=== PATIENT | female | born 1945 | race Caucasian/White ===

== ENCOUNTER 2019-09-05 03:56 | Emergency (ER) | payer MEDICARE ==
[2019-09-05] MEDS ORDERED: Albuterol Sulfate 2.5 mg/3 ml Neb ONE ×2 (04:01→12:11)
[2019-09-05] MEDS ORDERED: Lorazepam 2 MG/ML VIAL ONE (04:05)
[2019-09-05] MEDS ORDERED: methylPREDNISolone Sod Succ/PF 125 MG/2 ML VIAL ONE (04:05)
[2019-09-05 04:23] LABS: #Basophils 0.1 thou/uL (0.0-0.2); #Eosinphils 0.5 thou/uL (0.0-0.7); #Lymphocytes 2.5 thou/uL (1.20-3.40); #Monocytes 0.7 thou/uL (0.11-0.59); #Neutrophils 5.3 thou/uL (1.40-6.50); %Basophils 0.8 % (0.0-1.0); %Eosinophils 5.2 % (0.0-10.0); %Lymphocytes 27.5 % (21.0-51.0); %Monocytes 7.5 % (0.0-10.0); %Neutrophils 59.1 % (42.0-75.0); Mean Corpuscular Volume 90.6 fL (78.0-98.0); Mean Platelet Volume 7.7 fL (7.4-10.4); Platelet Count 350 thou/uL (130-400); RBC Distribution Width 12.5 % (11.5-14.5); Red Blood Cell (RBC) Count 3.43 mill/uL (4.20-5.40)
[2019-09-05 04:46] LABS: ALT (SGPT) 26 U/L (8-55); AST (SGOT) 19 U/L (5-34); Albumin 3.6 g/dL (3.4-4.8); Alkaline Phosphatase 70 U/L (40-110); Anion Gap 13 mmol/L (10-20); BUN (Urea Nitrogen) 13 mg/dL (9.8-20.1); Bilirubin, Total 0.4 mg/dL (0.2-1.2); Calc. Creatinine Clearance 0 mL/min (70-130); Carbon Dioxide 26 mmol/L (23-31); Chloride 107 mmol/L (98-107); Estimated GFR-MDRD 36; Globulin 3.1 g/dL (2.4-3.5); Glucose 141 mg/dL (83-110); Protein, Total 6.7 g/dL (6.0-8.3); Sodium 142 mmol/L (136-145)
--- NOTE | 2019-09-05 07:15 | RAD ---
CHEST 1 VIEW: Date: 09/05/2019 HISTORY: Dyspnea. Respiratory distress. COMPARISON: 11/17/10, 11/26/10. FINDINGS: Portable upright chest demonstrates a normal cardiac silhouette. Lungs and pleural spaces are clear. No pneumothorax or osseous abnormalities. IMPRESSION: No acute cardiopulmonary process. POS: PPP
== END 2019-09-05 16:13 | disposition short-term general hospital (02) ==
LOC: ERS 03:56
DX: J44.1 Chronic obstructive pulmonary disease with (acute) exacerbation (principal); I10 Essential (primary) hypertension; E78.00 Pure hypercholesterolemia, unspecified; Z79.82 Long term (current) use of aspirin; Z79.899 Other long term (current) drug therapy
CPT/HCPCS: 71045; 80053; 85025; 93005; 94640; 94644; 96374; 96375; J2060; J2930; J7611

== ENCOUNTER 2022-03-23 21:07 | Inpatient (IN) | payer MEDICARE ==
[2022-03-23 22:38] VITALS: BMI 38.9
[2022-03-23] MEDS ORDERED: HYDROmorphone 0.5 MG/0.5 ML SYRINGE SLOW IVP SCH (23:15)
[2022-03-23] MEDS ORDERED: Sodium Chloride 0.9% 1,000 ML IV SCH (23:15)
[2022-03-23] MEDS ORDERED: Ondansetron ODT 4 MG TAB PO PRN (23:46)
[2022-03-24] MEDS: Ketorolac Tromethamine 30 MG/ML VIAL IVP SCH (01:05)
[2022-03-24] MEDS: Ondansetron PF 4 MG/2 ML Vial IVP PRN (01:05)
[2022-03-24] MEDS: Lidocaine 5% Patch TD SCH (02:41)
[2022-03-24] MEDS ORDERED: Pantoprazole 40 MG VIAL IVP SCH ×2 (03:15→09:00)
[2022-03-24] MEDS: HYDROmorphone 0.5 MG/0.5 ML SYRINGE SLOW IVP PRN ×2 (03:46→22:51)
[2022-03-24 06:57] LABS: Anion Gap 15 mmol/L (10-20); BUN (Urea Nitrogen) 28 mg/dL (9.8-20.1); Calc. Creatinine Clearance 62 mL/min (70-130); Calcium 8.2 mg/dL (7.8-10.44); Carbon Dioxide 20 mmol/L (23-31); Chloride 111 mmol/L (98-107); Estimated GFR 53; Glucose 112 mg/dL (83-110); Potassium 4.8 mmol/L (3.5-5.1); Sodium 141 mmol/L (136-145)
[2022-03-24 07:05] LABS: Band 1 % (5-11); Eosinophils 2 % (0-10); Hemoglobin 11.3 g/dL (12.0-16.0); Lymphocytes 47 % (21-51); MDiff Complete? YES; Mean Corpuscular HGB CONC 31.2 g/dL (32.0-36.0); Monocytes 6 % (0-10); Neutrophil 43 % (42-75); Platelet Count 205 thou/uL (130-400); RBC Distribution Width 12.7 % (11.5-14.5); Red Blood Cell (RBC) Count 3.75 mill/uL (4.20-5.40); White Blood Cell (WBC) Count 8.5 thou/uL (4.8-10.8)
[2022-03-24] MEDS: Enoxaparin Sodium 30 MG/0.3 ML SYRINGE SC SCH (09:31)
[2022-03-24] MEDS ORDERED: HYDROcodone/Acetaminophen 5/325 mg Tablet PO SCH (11:30)
[2022-03-24] MEDS: Sucralfate 1 GM TAB PO SCH ×3 (12:46→20:25)
[2022-03-24] MEDS: HYDROcodone/Acetaminophen 5/325 mg Tablet PO PRN ×2 (16:28→20:26)
[2022-03-24] MEDS: Transdermal Patch Removal TOP SCH (16:35)
[2022-03-24] MEDS: tiZANidine HCl 4 MG TAB PO SCH (20:25)
[2022-03-24] MEDS: Lisinopril 10 MG TAB PO SCH (20:25)
[2022-03-24] MEDS: hydrALAZINE 20 MG/ML VIAL SLOW IVP PRN (21:46)
[2022-03-24] MEDS ORDERED: Ziprasidone 20 MG VIAL IM SCH (23:45)
[2022-03-25] MEDS: Ketorolac Tromethamine 30 MG/ML VIAL IVP SCH (01:00)
[2022-03-25] MEDS: HYDROcodone/Acetaminophen 5/325 mg Tablet PO PRN ×4 (02:00→20:38)
[2022-03-25] MEDS: Lidocaine 5% Patch TD SCH (02:00)
[2022-03-25] MEDS ORDERED: Sterile Water 10 ML VIAL FS PRN (04:45)
[2022-03-25] MEDS ORDERED: Ziprasidone 20 MG VIAL IM SCH (05:00)
[2022-03-25] MEDS ORDERED: HYDROcodone/Acetaminophen 5/325 mg Tablet PO SCH (05:00)
[2022-03-25] MEDS: Sucralfate 1 GM TAB PO SCH ×5 (06:37→20:36)
[2022-03-25] MEDS: tiZANidine HCl 4 MG TAB PO SCH ×2 (08:28→20:37)
[2022-03-25] MEDS: Enoxaparin Sodium 30 MG/0.3 ML SYRINGE SC SCH (08:28)
[2022-03-25] MEDS: Lisinopril 10 MG TAB PO SCH ×2 (08:28→20:39)
[2022-03-25] MEDS ORDERED: Gabapentin 300 MG CAP PO SCH (11:00)
[2022-03-25] MEDS ORDERED: Polyethylene Glycol 3350 17 GM Packet PO SCH (11:00)
[2022-03-25] MEDS: Polyethylene Glycol 3350 17 GM Packet PO SCH (12:44)
[2022-03-25] MEDS ORDERED: Lisinopril 10 MG TAB PO SCH (14:00)
[2022-03-25] MEDS: Transdermal Patch Removal TOP SCH (16:37)
[2022-03-25] MEDS: Gabapentin 300 MG CAP PO SCH (20:37)
[2022-03-25] MEDS: Senokot S 8.6-50 MG TAB PO SCH (20:37)
[2022-03-26] MEDS: Lidocaine 5% Patch TD SCH (04:10)
[2022-03-26] MEDS: HYDROcodone/Acetaminophen 5/325 mg Tablet PO PRN (05:27)
[2022-03-26] MEDS: hydrALAZINE 20 MG/ML VIAL SLOW IVP PRN (05:35)
[2022-03-26 07:34] LABS: Hemoglobin 10.5 g/dL (12.0-16.0); Mean Corpuscular HGB CONC 31.6 g/dL (32.0-36.0); Mean Corpuscular Hemoglobin 29.9 pg (27.0-31.0); Mean Corpuscular Volume 94.5 fL (78.0-98.0); Mean Platelet Volume 9.2 fL (7.4-10.4); Platelet Count 207 thou/uL (130-400); RBC Distribution Width 12.7 % (11.5-14.5); Red Blood Cell (RBC) Count 3.53 mill/uL (4.20-5.40)
[2022-03-26 07:56] LABS: Anion Gap 17 mmol/L (10-20); BUN (Urea Nitrogen) 31 mg/dL (9.8-20.1); Calc. Creatinine Clearance 50 mL/min (70-130); Calcium 8.7 mg/dL (7.8-10.44); Carbon Dioxide 16 mmol/L (23-31); Chloride 112 mmol/L (98-107); Estimated GFR 41; Glucose 85 mg/dL (83-110); Potassium 5.7 mmol/L (3.5-5.1); Sodium 139 mmol/L (136-145)
[2022-03-26 07:59] LABS: Band 1 % (5-11); Eosinophils 1 % (0-10); Lymphocytes 46 % (21-51); MDiff Complete? YES; Monocytes 8 % (0-10); Neutrophil 44 % (42-75); Platelet Morphology Comment Appears Adequate; RBC Morphology Normal
[2022-03-26] MEDS: Gabapentin 300 MG CAP PO SCH ×2 (08:53→21:38)
[2022-03-26] MEDS: Enoxaparin Sodium 30 MG/0.3 ML SYRINGE SC SCH (08:53)
[2022-03-26] MEDS: Senokot S 8.6-50 MG TAB PO SCH ×2 (08:53→21:41)
[2022-03-26] MEDS: Polyethylene Glycol 3350 17 GM Packet PO SCH (08:53)
[2022-03-26] MEDS: Lisinopril 10 MG TAB PO SCH (08:54)
[2022-03-26] MEDS: tiZANidine HCl 4 MG TAB PO SCH ×2 (08:55→21:40)
[2022-03-26] MEDS ORDERED: Sodium Bicarbonate Tab 325 MG TAB PO SCH (10:00)
[2022-03-26] MEDS: Sucralfate 1 GM TAB PO SCH ×3 (11:15→21:37)
[2022-03-26] MEDS ORDERED: Sodium Chloride 0.9% 500 ML IV SCH (12:45)
[2022-03-26 13:47] LABS: Anion Gap 17 mmol/L (10-20); BUN (Urea Nitrogen) 36 mg/dL (9.8-20.1); Calc. Creatinine Clearance 38 mL/min (70-130); Calcium 8.6 mg/dL (7.8-10.44); Carbon Dioxide 17 mmol/L (23-31); Chloride 113 mmol/L (98-107); Estimated GFR 30; Glucose 94 mg/dL (83-110); Sodium 142 mmol/L (136-145)
[2022-03-26] MEDS: Sodium Chloride 0.9% 1,000 ML IV SCH (16:03)
[2022-03-26] MEDS: Transdermal Patch Removal TOP SCH (16:03)
[2022-03-26] MEDS: Ondansetron PF 4 MG/2 ML Vial IVP PRN (20:44)
[2022-03-27] MEDS: Lidocaine 5% Patch TD SCH (01:57)
[2022-03-27] MEDS: HYDROcodone/Acetaminophen 5/325 mg Tablet PO PRN ×5 (01:59→20:47)
[2022-03-27] MEDS ORDERED: Metoprolol Tartrate 5 MG/5 ML VIAL IVP PRN (03:01)
[2022-03-27] MEDS: Sucralfate 1 GM TAB PO SCH ×4 (06:39→20:46)
[2022-03-27] MEDS: Sodium Chloride 0.9% 1,000 ML IV SCH (06:40)
[2022-03-27] MEDS: tiZANidine HCl 4 MG TAB PO SCH (07:42)
[2022-03-27 08:11] LABS: Hemoglobin 10.4 g/dL (12.0-16.0); Mean Corpuscular HGB CONC 31.3 g/dL (32.0-36.0); Mean Corpuscular Hemoglobin 30.3 pg (27.0-31.0); Mean Corpuscular Volume 96.9 fL (78.0-98.0); Mean Platelet Volume 8.5 fL (7.4-10.4); Platelet Count 264 thou/uL (130-400); RBC Distribution Width 12.7 % (11.5-14.5); Red Blood Cell (RBC) Count 3.42 mill/uL (4.20-5.40); White Blood Cell (WBC) Count 6.1 thou/uL (4.8-10.8)
[2022-03-27 08:27] LABS: Anion Gap 17 mmol/L (10-20); BUN (Urea Nitrogen) 44 mg/dL (9.8-20.1); Calc. Creatinine Clearance 30 mL/min (70-130); Calcium 8.6 mg/dL (7.8-10.44); Carbon Dioxide 17 mmol/L (23-31); Chloride 113 mmol/L (98-107); Estimated GFR 23; Glucose 98 mg/dL (83-110); Potassium 5.1 mmol/L (3.5-5.1); Sodium 142 mmol/L (136-145)
[2022-03-27] MEDS: Gabapentin 300 MG CAP PO SCH ×2 (09:27→20:46)
[2022-03-27] MEDS: Senokot S 8.6-50 MG TAB PO SCH ×2 (09:28→20:05)
[2022-03-27 09:58] LABS: Band 21 % (5-11); Eosinophils 1 % (0-10); Lymphocytes 39 % (21-51); MDiff Complete? YES; Monocytes 14 % (0-10); Neutrophil 25 % (42-75); Platelet Morphology Comment Appears Adequate; Polychromasia SLIGHT = 2-3 cells (100X) (0-2/hpf)
[2022-03-27] MEDS ORDERED: Sodium Bicarbonate 75 MEQ in Dextrose 5 %-0.45 % NaCl 1,000 ML IV SCH (11:15)
[2022-03-27 16:54] LABS: Bacteria/HPF None Seen HPF (None Seen); Bilirubin 1+ (Negative); Blood, Urine Negative (Negative); Clarity Turbid (Clear); Glucose, Urine (Dipstick) Normal (Negative); Ketone, Urine Negative (Negative); Leukocyte 25 Leu/uL (Negative); Nitrite Negative (Negative); Protein, Urine (Dipstick) 30 mg/dL (Neg-Trace); RBC/HPF 0-3 HPF (0-3); Specific Gravity, Urine 1.027 (1.002-1.036); Urobilinogen Normal mg/dL (Less than 2); WBC/HPF 0-3 HPF (0-3)
[2022-03-27] MEDS: Transdermal Patch Removal TOP SCH (17:19)
[2022-03-28] MEDS: HYDROcodone/Acetaminophen 5/325 mg Tablet PO PRN ×5 (00:20→21:28)
[2022-03-28] MEDS: Lidocaine 5% Patch TD SCH (02:53)
[2022-03-28 06:05] LABS: Anion Gap 14 mmol/L (10-20); BUN (Urea Nitrogen) 43 mg/dL (9.8-20.1); Calc. Creatinine Clearance 38 mL/min (70-130); Calcium 8.1 mg/dL (7.8-10.44); Carbon Dioxide 17 mmol/L (23-31); Chloride 113 mmol/L (98-107); Estimated GFR 30; Glucose 82 mg/dL (83-110); Potassium 4.2 mmol/L (3.5-5.1); Sodium 140 mmol/L (136-145)
[2022-03-28] MEDS: Sucralfate 1 GM TAB PO SCH ×4 (06:11→21:28)
[2022-03-28 06:12] LABS: Band 8 % (5-11); Eosinophils 1 % (0-10); Hemoglobin 9.3 g/dL (12.0-16.0); Hypochromia SLIGHT = 6-15 cells (100X) (0-5/hpf); Lymphocytes 30 % (21-51); MDiff Complete? YES; Mean Corpuscular HGB CONC 31.1 g/dL (32.0-36.0); Mean Corpuscular Hemoglobin 29.8 pg (27.0-31.0); Mean Corpuscular Volume 96.1 fL (78.0-98.0); Mean Platelet Volume 8.4 fL (7.4-10.4); Metamyelocyte 1 % (0-0); Monocytes 4 % (0-10); Neutrophil 56 % (42-75); Platelet Count 237 thou/uL (130-400); Platelet Morphology Comment Appears Adequate; Polychromasia SLIGHT = 2-3 cells (100X) (0-2/hpf); RBC Distribution Width 12.7 % (11.5-14.5); White Blood Cell (WBC) Count 8.1 thou/uL (4.8-10.8)
[2022-03-28] MEDS: Gabapentin 300 MG CAP PO SCH ×3 (08:08→19:50)
[2022-03-28] MEDS: tiZANidine HCl 4 MG TAB PO PRN ×2 (08:08→19:51)
[2022-03-28] MEDS: Polyethylene Glycol 3350 17 GM Packet PO SCH (08:11)
[2022-03-28] MEDS: Senokot S 8.6-50 MG TAB PO SCH ×2 (08:12→19:50)
[2022-03-28] MEDS: Albumin 25% 25 GM/100 ML BOT IVPB SCH ×2 (12:43→17:16)
[2022-03-28] MEDS: Transdermal Patch Removal TOP SCH (14:41)
[2022-03-28] MEDS: Sodium Bicarbonate Tab 325 MG TAB PO SCH (19:49)
[2022-03-29] MEDS: Albumin 25% 25 GM/100 ML BOT IVPB SCH ×2 (00:17→06:18)
[2022-03-29] MEDS: Lidocaine 5% Patch TD SCH (02:29)
[2022-03-29] MEDS: HYDROcodone/Acetaminophen 5/325 mg Tablet PO PRN ×5 (02:29→20:05)
[2022-03-29] MEDS: Sucralfate 1 GM TAB PO SCH ×4 (06:18→20:05)
[2022-03-29 06:31] LABS: Anion Gap 14 mmol/L (10-20); BUN (Urea Nitrogen) 36 mg/dL (9.8-20.1); Calc. Creatinine Clearance 49 mL/min (70-130); Calcium 8.8 mg/dL (7.8-10.44); Carbon Dioxide 17 mmol/L (23-31); Chloride 116 mmol/L (98-107); Estimated GFR 41; Glucose 80 mg/dL (83-110); Potassium 4.1 mmol/L (3.5-5.1); Sodium 143 mmol/L (136-145)
[2022-03-29 06:37] LABS: Band 16 % (5-11); Eosinophils 1 % (0-10); Hemoglobin 7.9 g/dL (12.0-16.0); Hypochromia SLIGHT = 6-15 cells (100X) (0-5/hpf); Lymphocytes 31 % (21-51); MDiff Complete? YES; Mean Corpuscular HGB CONC 31.3 g/dL (32.0-36.0); Mean Corpuscular Hemoglobin 29.9 pg (27.0-31.0); Mean Corpuscular Volume 95.6 fL (78.0-98.0); Mean Platelet Volume 8.6 fL (7.4-10.4); Monocytes 2 % (0-10); Neutrophil 50 % (42-75); Platelet Count 215 thou/uL (130-400); Platelet Morphology Comment Appears Adequate; RBC Distribution Width 12.5 % (11.5-14.5); Red Blood Cell (RBC) Count 2.63 mill/uL (4.20-5.40); White Blood Cell (WBC) Count 8.9 thou/uL (4.8-10.8)
[2022-03-29] MEDS: Gabapentin 300 MG CAP PO SCH ×3 (08:37→20:06)
[2022-03-29] MEDS: Sodium Bicarbonate Tab 325 MG TAB PO SCH ×2 (08:38→20:05)
[2022-03-29] MEDS: Polyethylene Glycol 3350 17 GM Packet PO SCH (08:48)
[2022-03-29] MEDS: Senokot S 8.6-50 MG TAB PO SCH ×2 (08:48→20:05)
[2022-03-29] MEDS: Transdermal Patch Removal TOP SCH (14:30)
[2022-03-29] MEDS: hydrALAZINE 20 MG/ML VIAL SLOW IVP PRN (15:55)
[2022-03-29] MEDS: tiZANidine HCl 4 MG TAB PO PRN (20:05)
[2022-03-30] MEDS: Lidocaine 5% Patch TD SCH (03:19)
[2022-03-30] MEDS: HYDROcodone/Acetaminophen 5/325 mg Tablet PO PRN ×3 (03:19→16:42)
[2022-03-30 06:27] LABS: Anion Gap 14 mmol/L (10-20); BUN (Urea Nitrogen) 26 mg/dL (9.8-20.1); Calc. Creatinine Clearance 60 mL/min (70-130); Calcium 8.7 mg/dL (7.8-10.44); Carbon Dioxide 20 mmol/L (23-31); Chloride 115 mmol/L (98-107); Estimated GFR 51; Glucose 86 mg/dL (83-110); Potassium 3.8 mmol/L (3.5-5.1); Sodium 145 mmol/L (136-145)
[2022-03-30 06:28] LABS: Eosinophils 1 % (0-10); Hemoglobin 8.6 g/dL (12.0-16.0); Hypochromia SLIGHT = 6-15 cells (100X) (0-5/hpf); Lymphocytes 24 % (21-51); MDiff Complete? YES; Mean Corpuscular HGB CONC 31.8 g/dL (32.0-36.0); Mean Corpuscular Hemoglobin 30.3 pg (27.0-31.0); Mean Corpuscular Volume 95.2 fL (78.0-98.0); Mean Platelet Volume 8.2 fL (7.4-10.4); Metamyelocyte 1 % (0-0); Monocytes 9 % (0-10); Neutrophil 64 % (42-75); Platelet Count 247 thou/uL (130-400); Platelet Morphology Comment Appears Adequate; Polychromasia SLIGHT = 2-3 cells (100X) (0-2/hpf); RBC Distribution Width 12.6 % (11.5-14.5); Reactive Lymphocytes 1 % (0-10); Red Blood Cell (RBC) Count 2.85 mill/uL (4.20-5.40); White Blood Cell (WBC) Count 12.2 thou/uL (4.8-10.8)
[2022-03-30] MEDS ORDERED: Dextrose 5% in Water 1,000 ML IV SCH (07:15)
[2022-03-30] MEDS: Sodium Bicarbonate Tab 325 MG TAB PO SCH ×2 (07:55→20:02)
[2022-03-30] MEDS: Gabapentin 300 MG CAP PO SCH ×3 (07:55→20:02)
[2022-03-30] MEDS: Sucralfate 1 GM TAB PO SCH ×4 (07:55→20:02)
[2022-03-30] MEDS: Polyethylene Glycol 3350 17 GM Packet PO SCH (08:02)
[2022-03-30] MEDS: Senokot S 8.6-50 MG TAB PO SCH ×2 (08:02→20:02)
[2022-03-30] MEDS: hydrALAZINE 20 MG/ML VIAL SLOW IVP PRN (11:26)
[2022-03-30] MEDS: Transdermal Patch Removal TOP SCH (14:33)
[2022-03-31] MEDS: hydrALAZINE 20 MG/ML VIAL SLOW IVP PRN (00:24)
[2022-03-31] MEDS: tiZANidine HCl 4 MG TAB PO PRN (00:55)
[2022-03-31] MEDS: HYDROcodone/Acetaminophen 5/325 mg Tablet PO PRN ×3 (00:55→18:04)
[2022-03-31] MEDS: Lidocaine 5% Patch TD SCH (03:25)
[2022-03-31 08:18] LABS: Anion Gap 14 mmol/L (10-20); BUN (Urea Nitrogen) 20 mg/dL (9.8-20.1); Calc. Creatinine Clearance 65 mL/min (70-130); Carbon Dioxide 21 mmol/L (23-31); Chloride 113 mmol/L (98-107); Estimated GFR 57; Glucose 94 mg/dL (83-110); Potassium 3.6 mmol/L (3.5-5.1); Sodium 144 mmol/L (136-145)
[2022-03-31] MEDS: Sodium Bicarbonate Tab 325 MG TAB PO SCH ×2 (08:30→20:37)
[2022-03-31] MEDS: Sucralfate 1 GM TAB PO SCH ×4 (08:30→20:38)
[2022-03-31] MEDS: Polyethylene Glycol 3350 17 GM Packet PO SCH (08:31)
[2022-03-31] MEDS: Amlodipine 10 MG TAB PO SCH (08:31)
[2022-03-31] MEDS: Senokot S 8.6-50 MG TAB PO SCH ×2 (08:31→20:44)
[2022-03-31] MEDS: Gabapentin 300 MG CAP PO SCH ×3 (08:31→20:35)
[2022-03-31 08:43] LABS: Band 1 % (5-11); Hemoglobin 9.3 g/dL (12.0-16.0); Lymphocytes 36 % (21-51); MDiff Complete? YES; Mean Corpuscular HGB CONC 31.5 g/dL (32.0-36.0); Mean Corpuscular Hemoglobin 30.2 pg (27.0-31.0); Mean Corpuscular Volume 95.8 fL (78.0-98.0); Mean Platelet Volume 8.6 fL (7.4-10.4); Monocytes 8 % (0-10); Neutrophil 55 % (42-75); Platelet Count 266 thou/uL (130-400); Platelet Morphology Comment Appears Adequate; RBC Distribution Width 12.6 % (11.5-14.5); Red Blood Cell (RBC) Count 3.09 mill/uL (4.20-5.40); White Blood Cell (WBC) Count 10.6 thou/uL (4.8-10.8)
[2022-03-31] MEDS: Transdermal Patch Removal TOP SCH (14:17)
[2022-03-31] MEDS: Cyclobenzaprine 10 MG TAB PO SCH (20:36)
[2022-03-31] MEDS: Losartan 25 MG TAB PO SCH (20:37)
[2022-04-01] MEDS: Lidocaine 5% Patch TD SCH (04:33)
[2022-04-01] MEDS: Sucralfate 1 GM TAB PO SCH ×4 (06:32→20:17)
[2022-04-01] MEDS: HYDROcodone/Acetaminophen 5/325 mg Tablet PO PRN ×3 (06:32→17:25)
[2022-04-01] MEDS: Cyclobenzaprine 10 MG TAB PO SCH ×2 (07:51→20:16)
[2022-04-01] MEDS: Gabapentin 300 MG CAP PO SCH ×3 (07:51→20:17)
[2022-04-01] MEDS: Senokot S 8.6-50 MG TAB PO SCH ×2 (07:52→20:16)
[2022-04-01] MEDS: Sodium Bicarbonate Tab 325 MG TAB PO SCH ×2 (07:52→20:17)
[2022-04-01] MEDS: Polyethylene Glycol 3350 17 GM Packet PO SCH (07:52)
[2022-04-01] MEDS: Amlodipine 10 MG TAB PO SCH (07:52)
[2022-04-01] MEDS: Transdermal Patch Removal TOP SCH (14:51)
[2022-04-01] MEDS: Losartan 25 MG TAB PO SCH (20:16)
[2022-04-01] MEDS ORDERED: Simethicone Chewable 80 MG TAB PO PRN (21:35)
[2022-04-02] MEDS: HYDROcodone/Acetaminophen 5/325 mg Tablet PO PRN (00:55)
[2022-04-02] MEDS: tiZANidine HCl 4 MG TAB PO PRN (00:55)
[2022-04-02] MEDS: Lidocaine 5% Patch TD SCH (00:59)
[2022-04-02] MEDS: Gabapentin 300 MG CAP PO SCH ×2 (08:34→15:20)
[2022-04-02] MEDS: Sucralfate 1 GM TAB PO SCH ×2 (08:35→12:17)
[2022-04-02] MEDS: Cyclobenzaprine 10 MG TAB PO SCH (08:35)
[2022-04-02] MEDS: Amlodipine 10 MG TAB PO SCH (08:35)
[2022-04-02] MEDS: Sodium Bicarbonate Tab 325 MG TAB PO SCH (08:35)
[2022-04-02] MEDS: Senokot S 8.6-50 MG TAB PO SCH (08:35)
[2022-04-02] MEDS: Polyethylene Glycol 3350 17 GM Packet PO SCH (08:35)
[2022-04-02] MEDS: Transdermal Patch Removal TOP SCH (14:52)
[2022-04-02 15:45] VITALS: BP 158/68; TEMP 97.9
== END 2022-04-02 15:20 | DRG 551 ==
LOC: INTOOBSV 22:31 → SJJU 22:31 → OBSVTOIN 03-24 08:23
PROVIDERS: ADMIT Internal Medicine; ATTEND Internal Medicine
DX: M51.36 Other intervertebral disc degeneration, lumbar region (principal); K55.069 Acute infarction of intestine, part and extent unspecified; N17.0 Acute kidney failure with tubular necrosis; J96.11 Chronic respiratory failure with hypoxia; E87.2 Acidosis; K25.9 Gastric ulcer, unspecified as acute or chronic, without hemorrhage or perforation; Z20.822 Contact with and (suspected) exposure to COVID-19; I10 Essential (primary) hypertension; J44.9 Chronic obstructive pulmonary disease, unspecified; E78.00 Pure hypercholesterolemia, unspecified; M19.90 Unspecified osteoarthritis, unspecified site; K29.80 Duodenitis without bleeding; D64.9 Anemia, unspecified; E86.0 Dehydration; M51.34 Other intervertebral disc degeneration, thoracic region; E87.5 Hyperkalemia; I95.2 Hypotension due to drugs; T40.2X5A Adverse effect of other opioids, initial encounter; Z88.5 Allergy status to narcotic agent; Z99.81 Dependence on supplemental oxygen; Z79.899 Other long term (current) drug therapy; Z90.49 Acquired absence of other specified parts of digestive tract
CPT/HCPCS: 36415; 36416; 72100; 72128; 72131; 72148; 76770; 80048; 81001; 84300; 85025; 85652; 86140; 87324; 87449; 96374; 96375; 96376; C9113; G0378; J0360; J1170; J1650; J1885; J2405; J3486; J7030; J7042; J7050; J7070; P9047; Q0162

== ENCOUNTER 2022-08-03 08:59 | Emergency (ER) | payer MEDICARE ==
[2022-08-03] MEDS ORDERED: ALPRAZolam 0.25 MG TAB ONE (09:41)
[2022-08-03] MEDS ORDERED: Labetalol HCl 100 MG/20 ML VIAL ONE (10:25)
== END 2022-08-03 11:35 | disposition home or self-care (01) ==
LOC: ERS 08:59
DX: I10 Essential (primary) hypertension (principal); J44.9 Chronic obstructive pulmonary disease, unspecified; E78.00 Pure hypercholesterolemia, unspecified
CPT/HCPCS: 96374

== ENCOUNTER 2023-03-02 14:17 | Emergency (ER) | payer MEDICARE, OTHER ==
[2023-03-02 15:04] LABS: #Basophils 0.1 thou/uL (0.0-0.2); #Eosinphils 0.2 thou/uL (0.0-0.7); #Monocytes 0.5 thou/uL (0.11-0.59); #Neutrophils 7.2 thou/uL (1.40-6.50); %Basophils 0.5 % (0.0-1.0); %Lymphocytes 51.6 % (21.0-51.0); %Monocytes 2.9 % (0.0-10.0); %Neutrophils 43.7 % (42.0-75.0); Hematocrit 30.5 % (36.0-47.0); Hemoglobin 9.3 g/dL (12.0-16.0); Mean Corpuscular HGB CONC 30.5 g/dL (32.0-36.0); Mean Corpuscular Hemoglobin 30.3 pg (27.0-31.0); Mean Corpuscular Volume 99.3 fl (78.0-98.0); Mean Platelet Volume 9.5 fL (7.4-10.4); Platelet Count 382 10x3/uL (130-400); RBC Distribution Width 16.2 % (11.5-14.5); Red Blood Cell (RBC) Count 3.07 mill/uL (4.20-5.40); White Blood Cell (WBC) Count 16.4 10x3/uL (4.8-10.8)
[2023-03-02 15:24] LABS: ALT (SGPT) Less than 7 U/L (8-55); AST (SGOT) 10 U/L (5-34); Albumin 3.7 g/dL (3.4-4.8); Alkaline Phosphatase 75 U/L (40-110); Anion Gap 17 mmol/L (10-20); BUN (Urea Nitrogen) 18 mg/dL (9.8-20.1); Bilirubin, Total Less than 0.2 mg/dL (0.2-1.2); Calc. Creatinine Clearance 0 mL/min (70-130); Calcium 8.6 mg/dL (7.8-10.44); Carbon Dioxide 23 mmol/L (23-31); Chloride 108 mmol/L (98-107); Estimated GFR 40; Glucose 109 mg/dL (83-110); Lipase 6 U/L (8-78); Potassium 4.5 mmol/L (3.5-5.1); Protein, Total 6.7 g/dL (5.8-8.1); Sodium 143 mmol/L (136-145)
[2023-03-02] MEDS ORDERED: HYDROcodone/Acetaminophen 5/325 mg Tablet ONE ×2 (15:44→18:07)
[2023-03-02 16:31] LABS: Bacteria/HPF None Seen HPF (None Seen); Bilirubin Negative (Negative); Blood, Urine Trace (Negative); CAUTI Indications for Culture Pelvic or flank pain; Clarity Turbid (Clear); Glucose, Urine (Dipstick) Normal (Negative); Ketone, Urine Negative (Negative); Leukocyte Negative Leu/uL (Negative); Nitrite Negative (Negative); Protein, Urine (Dipstick) 100 mg/dL (Neg-Trace); RBC/HPF 0-3 HPF (0-3); Specific Gravity, Urine 1.041 (1.002-1.036); Urobilinogen Normal mg/dL (Less than 2); WBC/HPF 0-3 HPF (0-3)
[2023-03-02 16:33] LABS: Urine Culture Reflex No No
== END 2023-03-02 18:20 | disposition home or self-care (01) ==
LOC: ERS 14:17
DX: G89.29 Other chronic pain (principal); M54.50 Low back pain, unspecified; R10.84 Generalized abdominal pain; I10 Essential (primary) hypertension
CPT/HCPCS: 36415; 74176; 80053; 81001; 83690; 85025

== ENCOUNTER 2023-03-21 04:02 | Inpatient (IN) | payer MEDICARE ==
[2023-03-21 05:54] LABS: Hemoglobin 7.1 g/dL (12.0-16.0); Manual Diff?? YES; Mean Platelet Volume 9.4 fL (7.4-10.4)
[2023-03-21 05:56] LABS: #Basophils 0.1 thou/uL (0.0-0.2); #Eosinphils 0.1 thou/uL (0.0-0.7); #Monocytes 0.5 thou/uL (0.11-0.59); #Neutrophils 6.3 thou/uL (1.40-6.50); %Basophils 0.5 % (0.0-1.0); %Eosinophils 0.5 % (0.0-10.0); %Lymphocytes 62.3 % (21.0-51.0); %Monocytes 2.7 % (0.0-10.0); %Neutrophils 33.6 % (42.0-75.0); Delete Auto Diff?? YES; Hematocrit 24.7 % (36.0-47.0); Mean Corpuscular HGB CONC 28.7 g/dL (32.0-36.0); Mean Corpuscular Hemoglobin 30.3 pg (27.0-31.0); Mean Corpuscular Volume 105.6 fl (78.0-98.0); Platelet Count 439 10x3/uL (130-400); RBC Distribution Width 16.5 % (11.5-14.5); Red Blood Cell (RBC) Count 2.34 mill/uL (4.20-5.40); White Blood Cell (WBC) Count 18.9 10x3/uL (4.8-10.8)
[2023-03-21 06:19] LABS: ALT (SGPT) Less than 7 U/L (8-55); AST (SGOT) 16 U/L (5-34); Acetaminophen Less than 10 mcg/mL (10.0-30.0); Albumin 3.5 g/dL (3.4-4.8); Alcohol Less than 10.0 mg/dL (Less than 10); Alkaline Phosphatase 79 U/L (40-110); Anion Gap 16 mmol/L (10-20); BUN (Urea Nitrogen) 31 mg/dL (9.8-20.1); Bilirubin, Total Less than 0.2 mg/dL (0.2-1.2); Calc. Creatinine Clearance 0 mL/min (70-130); Calcium 8.2 mg/dL (7.8-10.44); Carbon Dioxide 20 mmol/L (23-31); Chloride 108 mmol/L (98-107); Estimated GFR 19; Globulin 2.9 g/dL (2.4-3.5); Glucose 90 mg/dL (83-110); Lipase 20 U/L (8-78); Magnesium 3.8 mg/dL (1.6-2.6); Potassium 3.9 mmol/L (3.5-5.1); Protein, Total 6.4 g/dL (5.8-8.1); Salicylate 19.3 mg/dL (15.0-30.0); Sodium 140 mmol/L (136-145)
[2023-03-21 06:23] LABS: Troponin I 0.043 ng/mL (< 0.028)
[2023-03-21] MEDS ORDERED: Ziprasidone 20 MG VIAL ONE (06:27)
[2023-03-21] MEDS ORDERED: Sterile Water 10 ML ONE (06:27)
[2023-03-21 06:31] LABS: CellaVision Operator ID lab.abc; Lymphocytes 50 % (21-51); Macrocytosis SLIGHT = 6-15 cells HPF (0-5); Monocytes 1 % (0-10); Neutrophil 49 % (42-75); Platelet Adequacy Comment Platelets Normal; Polychromasia SLIGHT = 2-3 cells HPF (0-2); Smudge Cells 29.4 %; Total Cell Count 102
[2023-03-21] MEDS ORDERED: Aspirin 300 MG Suppository ONE (06:40)
[2023-03-21] MEDS ORDERED: Bisacodyl 10 MG SUPP PR PRN (07:44)
[2023-03-21 08:02] LABS: Bacteria/HPF None Seen HPF (None Seen); Bilirubin Negative (Negative); Blood, Urine Negative (Negative); CAUTI Indications for Culture Alt mental st,lethar; Clarity Clear (Clear); Glucose, Urine (Dipstick) Normal (Negative); Ketone, Urine Negative (Negative); Leukocyte Negative Leu/uL (Negative); Nitrite Negative (Negative); Protein, Urine (Dipstick) 20 mg/dL (Neg-Trace); RBC/HPF 0-3 HPF (0-3); Specific Gravity, Urine 1.022 (1.002-1.036); Squamous Epithelial 0-3 HPF (0-3); Urobilinogen Normal mg/dL (Less than 2); WBC/HPF 0-3 HPF (0-3)
[2023-03-21 08:03] LABS: Urine Culture Reflex No No
[2023-03-21 08:07] LABS: Amphetamine Not Detected (NotDetected); Barbiturates Screen Not Detected (NotDetected); Benzodiazepine Screen Not Detected (NotDetected); Cocaine Metabolite Screen Not Detected (NotDetected); Methadone Not Detected (NotDetected); Methamphetamine Not Detected (NotDetected); Opiate Screen Detected (NotDetected); Oxycodone Screen Not Detected (NotDetected); Phencyclidine (PCP) Not Detected (NotDetected); THC/Cannabinoid Screen Not Detected (NotDetected); Tricyclic Screen Not Detected (NotDetected)
[2023-03-21] MEDS: Lactated Ringer's 1,000 ML IV SCH ×2 (09:51→23:06)
[2023-03-21 11:16] LABS: Troponin I 0.032 ng/mL (< 0.028)
[2023-03-21 11:32] VITALS: BMI 32.6
[2023-03-21 12:22] LABS: Troponin I 0.034 ng/mL (< 0.028)
[2023-03-21] MEDS ORDERED: Hydroxychloroquine Sulfate 200 MG TAB PO SCH (21:00)
[2023-03-21] MEDS: Atorvastatin Calcium 40 MG TAB PO SCH (21:09)
[2023-03-21] MEDS ORDERED: tiZANidine HCl 4 MG TAB PO SCH (22:30)
[2023-03-21] MEDS ORDERED: Ondansetron PF 4 MG/2 ML Vial IVP PRN (22:31)
[2023-03-21] MEDS ORDERED: Ondansetron ODT 4 MG TAB PO PRN (22:31)
[2023-03-22 05:13] LABS: Hematocrit 23.2 % (36.0-47.0); Hemoglobin 6.7 g/dL (12.0-16.0); Mean Corpuscular HGB CONC 28.9 g/dL (32.0-36.0); Mean Corpuscular Hemoglobin 30.6 pg (27.0-31.0); Mean Corpuscular Volume 105.9 fl (78.0-98.0); Mean Platelet Volume 9.2 fL (7.4-10.4); Platelet Count 424 10x3/uL (130-400); RBC Distribution Width 16.8 % (11.5-14.5); Red Blood Cell (RBC) Count 2.19 mill/uL (4.20-5.40); White Blood Cell (WBC) Count 17.9 10x3/uL (4.8-10.8)
[2023-03-22 05:20] LABS: Hemoglobin A1c 4.3 % (4.0-6.0)
[2023-03-22 05:39] LABS: Iron 70 ug/dL (50-170); Iron Binding Capacity, Total 185 mcg/dL (265-497)
[2023-03-22 05:40] LABS: Anion Gap 15 mmol/L (10-20); BUN (Urea Nitrogen) 30 mg/dL (9.8-20.1); Calc. Creatinine Clearance 35 mL/min (70-130); Calcium 8.3 mg/dL (7.8-10.44); Carbon Dioxide 21 mmol/L (23-31); Cardiac Risk 4.1 (Less than 4.5); Chloride 112 mmol/L (98-107); Cholesterol 141 mg/dl (< 200 Desired); Estimated GFR 34; Glucose 90 mg/dL (83-110); HDL Cholesterol 34 mg/dL (>60 Neg Risk); LDL Cholesterol, Calculated 85 mg/dL; Magnesium 3.6 mg/dL (1.6-2.6); Potassium 3.9 mmol/L (3.5-5.1); Sodium 144 mmol/L (136-145); Triglycerides 109 mg/dL (Less than 150)
[2023-03-22 05:41] LABS: ALT (SGPT) Less than 7 U/L (8-55); AST (SGOT) 15 U/L (5-34); Albumin 3.2 g/dL (3.4-4.8); Alkaline Phosphatase 78 U/L (40-110); Bilirubin, Direct 0.1 mg/dL (0.1-0.3); Bilirubin, Total Less than 0.2 mg/dL (0.2-1.2); Delete Auto Diff?? YES; Iron 70 ug/dL (50-170); Iron Binding Capacity, Total 184 mcg/dL (265-497); Manual Diff?? YES; Protein, Total 5.9 g/dL (5.8-8.1)
[2023-03-22 05:54] LABS: Ferritin 136.31 ng/mL (10-291)
[2023-03-22 06:00] LABS: Vitamin B12 936 pg/mL (211-911)
[2023-03-22 06:07] LABS: HIV (1/2) Antibody/Antigen Non-Reactive (NonReactive); HIV 1/2 INDEX 0.13 S/CO (<1.00)
[2023-03-22 06:59] LABS: Anisocytosis MODERATE=16-30 cells HPF (0-5); Band 3 % (5-11); CellaVision Operator ID LAB.JMM; Eosinophils 1 % (0-10); Lymphocytes 41 % (21-51); Macrocytosis SLIGHT = 6-15 cells HPF (0-5); Monocytes 2 % (0-10); Neutrophil 52 % (42-75); Platelet Adequacy Comment Platelets Normal; Polychromasia SLIGHT = 2-3 cells HPF (0-2); Smudge Cells 24.3 %; Total Cell Count 115
[2023-03-22] MEDS: Lactated Ringer's 1,000 ML IV SCH ×2 (07:17→15:20)
[2023-03-22] MEDS ORDERED: Amlodipine 10 MG TAB PO SCH (09:00)
[2023-03-22] MEDS ORDERED: Aspirin 300 MG Suppository PR SCH (09:00)
[2023-03-22] MEDS: Aspirin Chewable 81 MG TAB PO SCH (09:20)
[2023-03-22] MEDS ORDERED: Calcium Carbonate 600 MG + Vit D TAB PO SCH (09:45)
[2023-03-22] MEDS ORDERED: Leflunomide 10 mg Tablet PO SCH (09:45)
[2023-03-22] MEDS: DULoxetine 60 MG CAP PO SCH ×2 (09:50→21:17)
[2023-03-22] MEDS ORDERED: Lorazepam 2 MG/ML VIAL SLOW IVP PRN (10:06)
[2023-03-22 11:44] LABS: Syphilis Antibody Nonreactive (Nonreactive); Syphilis Antibody Index 0.07 S/CO (<1.00 Non-Reactive)
[2023-03-22] MEDS: hydrALAZINE 20 MG/ML VIAL SLOW IVP PRN ×2 (15:17→23:42)
[2023-03-22] MEDS ORDERED: Pantoprazole 80 MG in Sodium Chloride 0.9% 100 ML IVPB SCH (16:50)
[2023-03-22] MEDS: Atorvastatin Calcium 40 MG TAB PO SCH (21:17)
[2023-03-22] MEDS ORDERED: tiZANidine HCl 4 MG TAB PO SCH (23:15)
[2023-03-22 23:47] LABS: Platelet Count 357 10x3/uL (130-400)
[2023-03-22 23:48] LABS: Hematocrit 37.6 % (36.0-47.0); Hemoglobin 11.2 g/dL (12.0-16.0)
[2023-03-23 05:31] LABS: #Basophils 0.1 thou/uL (0.0-0.2); #Monocytes 0.9 thou/uL (0.11-0.59); #Neutrophils 9.3 thou/uL (1.40-6.50); %Basophils 0.4 % (0.0-1.0); %Eosinophils 0.1 % (0.0-10.0); %Monocytes 4.2 % (0.0-10.0); %Neutrophils 44.7 % (42.0-75.0); Hematocrit 32.3 % (36.0-47.0); Hemoglobin 10.4 g/dL (12.0-16.0); Mean Corpuscular HGB CONC 32.2 g/dL (32.0-36.0); Mean Corpuscular Hemoglobin 30.8 pg (27.0-31.0); Mean Platelet Volume 9.9 fL (7.4-10.4); Platelet Count 330 10x3/uL (130-400); RBC Distribution Width 18.1 % (11.5-14.5); Red Blood Cell (RBC) Count 3.38 mill/uL (4.20-5.40); White Blood Cell (WBC) Count 20.8 10x3/uL (4.8-10.8)
[2023-03-23 05:33] LABS: Mean Corpuscular Volume 95.6 fl (78.0-98.0)
[2023-03-23 05:35] LABS: Anion Gap 12 mmol/L (10-20); BUN (Urea Nitrogen) 23 mg/dL (9.8-20.1); Calc. Creatinine Clearance 48 mL/min (70-130); Calcium 8.7 mg/dL (7.8-10.44); Carbon Dioxide 21 mmol/L (23-31); Chloride 113 mmol/L (98-107); Estimated GFR 49; Glucose 100 mg/dL (83-110); Magnesium 3.3 mg/dL (1.6-2.6); Potassium 4.1 mmol/L (3.5-5.1); Sodium 142 mmol/L (136-145)
[2023-03-23] MEDS ORDERED: Pantoprazole 80 MG, Admixture Fee 1 EACH in Sodium Chloride 0.9% 100 ML IVPB SCH (06:45)
[2023-03-23] MEDS ORDERED: PROPOFOL 200 MG/20 ML VIAL ONE (11:07)
[2023-03-23] MEDS ORDERED: Ondansetron PF 4 MG/2 ML Vial ONE (11:07)
[2023-03-23] MEDS ORDERED: Dexamethasone 20 MG/5 ML VIAL ONE (11:07)
[2023-03-23] MEDS ORDERED: Lidocaine 1% PF 5 ML VIAL ONE (11:07)
[2023-03-23] MEDS ORDERED: fentaNYL 50 mcg/mL 1 mL Vial ONE (12:07)
[2023-03-23] MEDS: Calcium Carbonate 600 MG + Vit D TAB PO SCH (14:43)
[2023-03-23] MEDS: Leflunomide 10 mg Tablet PO SCH (14:43)
[2023-03-23] MEDS: DULoxetine 60 MG CAP PO SCH ×2 (14:43→22:10)
[2023-03-23] MEDS: Aspirin Chewable 81 MG TAB PO SCH (14:43)
[2023-03-23] MEDS: Atorvastatin Calcium 40 MG TAB PO SCH (22:10)
[2023-03-23] MEDS: Pantoprazole 40 MG VIAL IVP SCH (22:11)
[2023-03-24 08:12] LABS: Hematocrit 32.2 % (36.0-47.0); Hemoglobin 9.8 g/dL (12.0-16.0); Mean Corpuscular HGB CONC 30.4 g/dL (32.0-36.0); Mean Corpuscular Hemoglobin 30.2 pg (27.0-31.0); Mean Corpuscular Volume 99.1 fl (78.0-98.0); Mean Platelet Volume 9.2 fL (7.4-10.4); Platelet Count 299 10x3/uL (130-400); RBC Distribution Width 18.4 % (11.5-14.5); Red Blood Cell (RBC) Count 3.25 mill/uL (4.20-5.40)
[2023-03-24 08:40] LABS: Anion Gap 11 mmol/L (10-20); BUN (Urea Nitrogen) 17 mg/dL (9.8-20.1); Calc. Creatinine Clearance 58 mL/min (70-130); Calcium 8.4 mg/dL (7.8-10.44); Carbon Dioxide 21 mmol/L (23-31); Chloride 113 mmol/L (98-107); Estimated GFR 62; Glucose 83 mg/dL (83-110); Magnesium 2.6 mg/dL (1.6-2.6); Sodium 141 mmol/L (136-145)
[2023-03-24 08:42] LABS: Manual Diff?? YES
[2023-03-24 08:43] LABS: Delete Auto Diff?? YES
[2023-03-24] MEDS ORDERED: Non-Formulary Item 1 EACH (Losartan Potassium [Losartan Potassium] 100 MG Tablet) PO SCH (09:00)
[2023-03-24] MEDS: Amlodipine 10 MG TAB PO SCH (09:29)
[2023-03-24] MEDS: Calcium Carbonate 600 MG + Vit D TAB PO SCH (09:29)
[2023-03-24] MEDS: Losartan 25 MG TAB PO SCH (09:30)
[2023-03-24] MEDS: Leflunomide 10 mg Tablet PO SCH (09:30)
[2023-03-24] MEDS: DULoxetine 60 MG CAP PO SCH ×2 (09:30→21:04)
[2023-03-24] MEDS: Aspirin Chewable 81 MG TAB PO SCH ×2 (09:30→10:08)
[2023-03-24] MEDS: Pantoprazole 40 MG VIAL IVP SCH ×2 (09:31→21:04)
[2023-03-24 09:40] LABS: Anisocytosis SLIGHT = 6-15 cells HPF (0-5); Band 1 % (5-11); Burr Cells SLIGHT = 2-5 cells HPF (0-1); CellaVision Operator ID LAB.KB; Hypochromia SLIGHT = 6-15 cells HPF (0-5); Lymphocytes 51 % (21-51); Macrocytosis SLIGHT = 6-15 cells HPF (0-5); Neutrophil 48 % (42-75); Platelet Adequacy Comment Platelets Normal; Polychromasia SLIGHT = 2-3 cells HPF (0-2); Reflex for Review?? YES; Smudge Cells 37.9 %; Total Cell Count 103
[2023-03-24] MEDS: Atorvastatin Calcium 40 MG TAB PO SCH (21:03)
[2023-03-25] MEDS: Amlodipine 10 MG TAB PO SCH (08:49)
[2023-03-25] MEDS: Calcium Carbonate 600 MG + Vit D TAB PO SCH (08:49)
[2023-03-25] MEDS: DULoxetine 60 MG CAP PO SCH ×2 (08:49→20:03)
[2023-03-25] MEDS: Pantoprazole 40 MG VIAL IVP SCH ×2 (08:49→20:03)
[2023-03-25] MEDS: Aspirin Chewable 81 MG TAB PO SCH (08:49)
[2023-03-25] MEDS: Losartan 25 MG TAB PO SCH (08:49)
[2023-03-25] MEDS: Leflunomide 10 mg Tablet PO SCH (08:53)
[2023-03-25 09:10] LABS: Hematocrit 35.8 % (36.0-47.0); Mean Corpuscular HGB CONC 30.7 g/dL (32.0-36.0); Mean Corpuscular Hemoglobin 30.6 pg (27.0-31.0); Mean Corpuscular Volume 99.4 fl (78.0-98.0); Mean Platelet Volume 9.4 fL (7.4-10.4); Platelet Count 279 10x3/uL (130-400); RBC Distribution Width 17.9 % (11.5-14.5); White Blood Cell (WBC) Count 16.2 10x3/uL (4.8-10.8)
[2023-03-25 09:12] LABS: Delete Auto Diff?? YES; Manual Diff?? YES
[2023-03-25 09:29] LABS: Anion Gap 11 mmol/L (10-20); BUN (Urea Nitrogen) 13 mg/dL (9.8-20.1); Calc. Creatinine Clearance 58 mL/min (70-130); Calcium 8.6 mg/dL (7.8-10.44); Carbon Dioxide 22 mmol/L (23-31); Chloride 111 mmol/L (98-107); Estimated GFR 61; Glucose 85 mg/dL (83-110); Magnesium 2.4 mg/dL (1.6-2.6); Potassium 4.1 mmol/L (3.5-5.1); Sodium 140 mmol/L (136-145)
[2023-03-25 09:37] LABS: Anisocytosis SLIGHT = 6-15 cells HPF (0-5); Burr Cells SLIGHT = 2-5 cells HPF (0-1); CellaVision Operator ID LAB.KB; Eosinophils 1 % (0-10); Hypochromia SLIGHT = 6-15 cells HPF (0-5); Lymphocytes 45 % (21-51); Macrocytosis SLIGHT = 6-15 cells HPF (0-5); Monocytes 1 % (0-10); Neutrophil 53 % (42-75); Platelet Adequacy Comment Platelets Normal; Poikilocytosis SLIGHT = 6-15 cells HPF (0-5); Polychromasia SLIGHT = 2-3 cells HPF (0-2); Total Cell Count 100
[2023-03-25] MEDS ORDERED: Loperamide HCl 2 MG CAP PO PRN (10:34)
[2023-03-25] MEDS: Carvedilol 3.125 MG TAB PO SCH (17:23)
[2023-03-25] MEDS: Atorvastatin Calcium 40 MG TAB PO SCH (20:03)
[2023-03-26 06:00] LABS: Hematocrit 36.7 % (36.0-47.0); Hemoglobin 10.9 g/dL (12.0-16.0); Mean Corpuscular HGB CONC 29.7 g/dL (32.0-36.0); Mean Corpuscular Hemoglobin 30.4 pg (27.0-31.0); Mean Corpuscular Volume 102.2 fl (78.0-98.0); Platelet Count 243 10x3/uL (130-400); RBC Distribution Width 17.5 % (11.5-14.5); Red Blood Cell (RBC) Count 3.59 mill/uL (4.20-5.40); White Blood Cell (WBC) Count 16.7 10x3/uL (4.8-10.8)
[2023-03-26 06:12] LABS: Manual Diff?? YES
[2023-03-26 06:13] LABS: Delete Auto Diff?? YES
[2023-03-26 06:24] LABS: Anion Gap 13 mmol/L (10-20); BUN (Urea Nitrogen) 14 mg/dL (9.8-20.1); Calc. Creatinine Clearance 63 mL/min (70-130); Calcium 8.7 mg/dL (7.8-10.44); Carbon Dioxide 21 mmol/L (23-31); Chloride 111 mmol/L (98-107); Estimated GFR 68; Glucose 89 mg/dL (83-110); Magnesium 1.9 mg/dL (1.6-2.6); Potassium 4.2 mmol/L (3.5-5.1); Sodium 141 mmol/L (136-145)
[2023-03-26 08:49] LABS: Band 1 % (5-11); Burr Cells SLIGHT = 2-5 cells HPF (0-1); CellaVision Operator ID LAB.GE; Lymphocytes 36 % (21-51); Macrocytosis SLIGHT = 6-15 cells HPF (0-5); Monocytes 2 % (0-10); Neutrophil 61 % (42-75); Platelet Adequacy Comment Platelets Normal; Polychromasia SLIGHT = 2-3 cells HPF (0-2); Smudge Cells 26.5 %; Total Cell Count 102
[2023-03-26] MEDS: Losartan 25 MG TAB PO SCH (10:08)
[2023-03-26] MEDS: Pantoprazole 40 MG VIAL IVP SCH ×2 (10:08→20:18)
[2023-03-26] MEDS: Aspirin Chewable 81 MG TAB PO SCH (10:08)
[2023-03-26] MEDS: DULoxetine 60 MG CAP PO SCH ×2 (10:08→20:18)
[2023-03-26] MEDS: Leflunomide 10 mg Tablet PO SCH (10:09)
[2023-03-26] MEDS: Calcium Carbonate 600 MG + Vit D TAB PO SCH (10:09)
[2023-03-26] MEDS: Carvedilol 3.125 MG TAB PO SCH ×2 (10:10→17:59)
[2023-03-26] MEDS: Amlodipine 10 MG TAB PO SCH (10:10)
[2023-03-26] MEDS: traMADol HCl 50 MG TAB PO PRN (11:04)
[2023-03-26] MEDS: Atorvastatin Calcium 40 MG TAB PO SCH (20:18)
[2023-03-27] MEDS ORDERED: Sodium Chloride 0.9% 500 ML IV SCH ×2 (03:00→03:15)
[2023-03-27 04:56] LABS: #Basophils 0.1 thou/uL (0.0-0.2); #Eosinphils 0.1 thou/uL (0.0-0.7); #Monocytes 0.6 thou/uL (0.11-0.59); #Neutrophils 5.2 thou/uL (1.40-6.50); %Basophils 0.5 % (0.0-1.0); %Eosinophils 0.8 % (0.0-10.0); %Lymphocytes 54.1 % (21.0-51.0); %Monocytes 4.5 % (0.0-10.0); %Neutrophils 39.8 % (42.0-75.0); Hematocrit 33.4 % (36.0-47.0); Hemoglobin 10.2 g/dL (12.0-16.0); Mean Corpuscular HGB CONC 30.5 g/dL (32.0-36.0); Mean Corpuscular Hemoglobin 29.9 pg (27.0-31.0); Platelet Count 245 10x3/uL (130-400); RBC Distribution Width 16.6 % (11.5-14.5); Red Blood Cell (RBC) Count 3.41 mill/uL (4.20-5.40)
[2023-03-27 05:12] LABS: Manual Diff?? YES; Mean Corpuscular Volume 97.9 fl (78.0-98.0)
[2023-03-27 05:19] LABS: Anion Gap 11 mmol/L (10-20); BUN (Urea Nitrogen) 13 mg/dL (9.8-20.1); Calc. Creatinine Clearance 63 mL/min (70-130); Calcium 8.5 mg/dL (7.8-10.44); Carbon Dioxide 23 mmol/L (23-31); Chloride 108 mmol/L (98-107); Estimated GFR 68; Glucose 79 mg/dL (83-110); Magnesium 1.8 mg/dL (1.6-2.6); Potassium 4.2 mmol/L (3.5-5.1); Sodium 138 mmol/L (136-145)
[2023-03-27 05:42] LABS: Anisocytosis SLIGHT = 6-15 cells HPF (0-5); CellaVision Operator ID lab.sh2; Hypochromia MODERATE=16-30 cells HPF (0-5); Large Platelets 3.4 % (0-5); Lymphocytes 41 % (21-51); Macrocytosis SLIGHT = 6-15 cells HPF (0-5); Monocytes 3 % (0-10); Neutrophil 55 % (42-75); Platelet Adequacy Comment Platelets Normal; Polychromasia MODERATE = 3-4 cells HPF (0-2); Smudge Cells 40.5 %; Total Cell Count 116
[2023-03-27] MEDS: Losartan 25 MG TAB PO SCH (09:48)
[2023-03-27] MEDS: Aspirin Chewable 81 MG TAB PO SCH (09:48)
[2023-03-27] MEDS: Calcium Carbonate 600 MG + Vit D TAB PO SCH (09:49)
[2023-03-27] MEDS: Amlodipine 10 MG TAB PO SCH (09:49)
[2023-03-27] MEDS: DULoxetine 60 MG CAP PO SCH ×2 (09:49→20:08)
[2023-03-27] MEDS: Carvedilol 3.125 MG TAB PO SCH ×2 (09:58→17:56)
[2023-03-27] MEDS: Pantoprazole 40 MG VIAL IVP SCH ×2 (09:58→20:08)
[2023-03-27] MEDS: Leflunomide 10 mg Tablet PO SCH (09:58)
[2023-03-27] MEDS: Atorvastatin Calcium 40 MG TAB PO SCH (20:08)
[2023-03-28 05:10] LABS: #Basophils 0.1 thou/uL (0.0-0.2); #Eosinphils 0.1 thou/uL (0.0-0.7); #Monocytes 0.5 thou/uL (0.11-0.59); #Neutrophils 4.2 thou/uL (1.40-6.50); %Basophils 0.4 % (0.0-1.0); %Eosinophils 0.9 % (0.0-10.0); %Lymphocytes 57.7 % (21.0-51.0); %Monocytes 4.6 % (0.0-10.0); %Neutrophils 36.1 % (42.0-75.0); Hematocrit 34.2 % (36.0-47.0); Hemoglobin 10.6 g/dL (12.0-16.0); Mean Corpuscular Hemoglobin 30.5 pg (27.0-31.0); Mean Corpuscular Volume 98.3 fl (78.0-98.0); Mean Platelet Volume 10.2 fL (7.4-10.4); Platelet Count 238 10x3/uL (130-400); Red Blood Cell (RBC) Count 3.48 mill/uL (4.20-5.40); White Blood Cell (WBC) Count 11.6 10x3/uL (4.8-10.8)
[2023-03-28 05:39] LABS: Anion Gap 11 mmol/L (10-20); BUN (Urea Nitrogen) 12 mg/dL (9.8-20.1); Calc. Creatinine Clearance 67 mL/min (70-130); Calcium 8.5 mg/dL (7.8-10.44); Carbon Dioxide 21 mmol/L (23-31); Chloride 108 mmol/L (98-107); Estimated GFR 73; Glucose 83 mg/dL (83-110); Magnesium 1.6 mg/dL (1.6-2.6); Potassium 4.3 mmol/L (3.5-5.1); Sodium 136 mmol/L (136-145)
[2023-03-28] MEDS: Calcium Carbonate 600 MG + Vit D TAB PO SCH (10:00)
[2023-03-28] MEDS: Leflunomide 10 mg Tablet PO SCH (10:00)
[2023-03-28] MEDS: Carvedilol 3.125 MG TAB PO SCH ×2 (10:01→18:11)
[2023-03-28] MEDS: Amlodipine 10 MG TAB PO SCH (10:01)
[2023-03-28] MEDS: Aspirin Chewable 81 MG TAB PO SCH (10:01)
[2023-03-28] MEDS: DULoxetine 60 MG CAP PO SCH ×2 (10:01→20:12)
[2023-03-28] MEDS: Losartan 25 MG TAB PO SCH (10:02)
[2023-03-28] MEDS: Pantoprazole 40 MG VIAL IVP SCH ×2 (10:03→20:13)
[2023-03-28] MEDS: Atorvastatin Calcium 40 MG TAB PO SCH (20:12)
[2023-03-29] MEDS: Carvedilol 3.125 MG TAB PO SCH ×2 (08:58→17:30)
[2023-03-29] MEDS: Amlodipine 10 MG TAB PO SCH (08:59)
[2023-03-29] MEDS: DULoxetine 60 MG CAP PO SCH ×2 (08:59→21:27)
[2023-03-29] MEDS: Aspirin Chewable 81 MG TAB PO SCH (08:59)
[2023-03-29] MEDS: Calcium Carbonate 600 MG + Vit D TAB PO SCH (08:59)
[2023-03-29] MEDS: traMADol HCl 50 MG TAB PO PRN (08:59)
[2023-03-29] MEDS: Losartan 25 MG TAB PO SCH (08:59)
[2023-03-29] MEDS: Pantoprazole 40 MG VIAL IVP SCH (09:00)
[2023-03-29] MEDS: Leflunomide 10 mg Tablet PO SCH (10:13)
[2023-03-29] MEDS: Atorvastatin Calcium 40 MG TAB PO SCH (21:27)
[2023-03-30] MEDS: Amlodipine 10 MG TAB PO SCH (09:36)
[2023-03-30] MEDS: Carvedilol 3.125 MG TAB PO SCH ×2 (09:36→18:10)
[2023-03-30] MEDS: Calcium Carbonate 600 MG + Vit D TAB PO SCH (09:37)
[2023-03-30] MEDS: Aspirin Chewable 81 MG TAB PO SCH (09:37)
[2023-03-30] MEDS: Losartan 25 MG TAB PO SCH (09:38)
[2023-03-30] MEDS: DULoxetine 60 MG CAP PO SCH ×2 (09:38→21:06)
[2023-03-30] MEDS: Leflunomide 10 mg Tablet PO SCH (09:57)
[2023-03-30] MEDS: Atorvastatin Calcium 40 MG TAB PO SCH (21:06)
[2023-03-31] MEDS: Carvedilol 3.125 MG TAB PO SCH (09:48)
[2023-03-31] MEDS: Amlodipine 10 MG TAB PO SCH (09:49)
[2023-03-31] MEDS: Aspirin Chewable 81 MG TAB PO SCH (09:50)
[2023-03-31] MEDS: Calcium Carbonate 600 MG + Vit D TAB PO SCH (09:51)
[2023-03-31] MEDS: Leflunomide 10 mg Tablet PO SCH (09:51)
[2023-03-31] MEDS: DULoxetine 60 MG CAP PO SCH (09:51)
[2023-03-31] MEDS: Losartan 25 MG TAB PO SCH (09:51)
[2023-03-31 12:20] VITALS: TEMP 97.4
[2023-03-31 15:36] VITALS: BP 174/78
== END 2023-03-31 15:45 | DRG 64 ==
LOC: SUATTDRO 04:02 → ERS 04:02 → 2SE 07:44
PROVIDERS: ADMIT Family Medicine; ATTEND Family Medicine
PROC: 30233N1 Transfusion of Nonautologous Red Blood Cells into Peripheral Vein, Percutaneous Approach (ICD-10-PCS; 2023-03-22)
PROC: 0DB98ZX Excision of Duodenum, Via Natural or Artificial Opening Endoscopic, Diagnostic (ICD-10-PCS; principal; 2023-03-23)
PROC: 0DB78ZX Excision of Stomach, Pylorus, Via Natural or Artificial Opening Endoscopic, Diagnostic (ICD-10-PCS; 2023-03-23)
DX: I63.9 Cerebral infarction, unspecified (principal); K26.0 Acute duodenal ulcer with hemorrhage; K29.71 Gastritis, unspecified, with bleeding; C91.10 Chronic lymphocytic leukemia of B-cell type not having achieved remission; N17.9 Acute kidney failure, unspecified; D62 Acute posthemorrhagic anemia; I13.0 Hypertensive heart and chronic kidney disease with heart failure and stage 1 through stage 4 chronic kidney disease, or unspecified chronic kidney disease; I50.32 Chronic diastolic (congestive) heart failure; G93.49 Other encephalopathy; R47.01 Aphasia; J44.9 Chronic obstructive pulmonary disease, unspecified; R44.1 Visual hallucinations; N18.30 Chronic kidney disease, stage 3 unspecified; G89.4 Chronic pain syndrome; D63.1 Anemia in chronic kidney disease; F03.90 Unspecified dementia, unspecified severity, without behavioral disturbance, psychotic disturbance, mood disturbance, and anxiety; E78.00 Pure hypercholesterolemia, unspecified; I48.91 Unspecified atrial fibrillation; R33.9 Retention of urine, unspecified; Z88.5 Allergy status to narcotic agent; Z88.8 Allergy status to other drugs, medicaments and biological substances; Z79.82 Long term (current) use of aspirin; Z79.899 Other long term (current) drug therapy; Z90.49 Acquired absence of other specified parts of digestive tract; Z98.890 Other specified postprocedural states; Z87.891 Personal history of nicotine dependence; Z91.018 Allergy to other foods; R53.81 Other malaise
CPT/HCPCS: 36415; 36430; 70450; 70551; 71045; 74176; 74230; 80048; 80053; 80061; 80076; 80306; 80307; 81001; 82274; 82607; 82728; 83036; 83540; 83550; 83605; 83690; 83735; 83880; 84443; 84484; 85025; 85046; 85060; 86780; 86850; 86900; 86901; 87040; 87389; 88184; 88185; 88189; 88305; 88342; 93005; 93306; 96360; 96361; 96372; C9113; J0360; J1100; J2060; J2405; J2704; J3010; J3486; J3490; J7030; J7120; P9016; Q0162